=== PATIENT | female | born 1980 | race Hispanic/Latino ===

== ENCOUNTER 2017-01-09 09:25 | Day surgery (SDC) | payer BC ==
[~2017-01-09] VITALS: Ht 149.9 cm; Wt 50.4 kg
[~2017-01-09 09:25] MED LIST: MIRENA1 EACH IY
[2017-01-09 10:17] VITALS: BP 97/60
[2017-01-09 13:31] VITALS: BP 90/52; BP 98/53
[2017-01-09 14:31] VITALS: BP 98/53
[2017-01-09 15:09] VITALS: BP 92/56
== END 2017-01-09 15:15 | disposition home or self-care (01) ==
LOC: SDC 09:25
PROC: 0UPD8HZ Removal of Contraceptive Device from Uterus and Cervix, Via Natural or Artificial Opening Endoscopic (ICD-10-PCS; principal; 2017-01-09)
DX: Z30.432 Encounter for removal of intrauterine contraceptive device (principal); T83.89XA Other specified complication of genitourinary prosthetic devices, implants and grafts, initial encounter
CPT/HCPCS: J0131; J1885; J2250; J2765; J3010